=== PATIENT | female | born 1985 | race Caucasian/White ===

== ENCOUNTER 2018-07-24 18:25 | Inpatient (IN) | payer BC ==
[2018-07-24 20:11] LABS: ADD MAN DIFF? NO
[2018-07-24 20:14] LABS: WHITE BLOOD COUNT 12.8 10^3/ul (4.8-10.8)
[2018-07-24 20:14] LABS: BASOPHILS % 0.3 % (0.0-2.0); EOSINOPHILS # 0.1 10^3/ul (0.0-0.5); EOSINOPHILS % 0.8 % (0.0-7.0); HEMATOCRIT 38.2 % (37.0-47.0); HEMOGLOBIN 12.4 g/dl (12.0-16.0); LYMPHOCYTES # 2.4 10^3/ul (0.8-2.9); LYMPHOCYTES % 18.7 % (15.0-51.0); MEAN CORPUSCULAR HEMOGLOBIN 29.7 pg (29.0-33.0); MEAN CORPUSCULAR HGB CONC 32.5 g/dl (32.0-37.0); MEAN CORPUSCULAR VOLUME 91.4 fl (82.0-101.0); MEAN PLATELET VOLUME 10.8 fl (7.4-10.4); MONOCYTE # 1.1 10^3/ul (0.3-0.9); MONOCYTES % 8.4 % (0.0-11.0); NEUTROPHIL # 9.1 10^3/ul (1.6-7.5); NEUTROPHILS % 71.2 % (39.0-77.0); PLATELET COUNT 236 10^3/UL (140-415); RED BLOOD COUNT 4.18 10^6/ul (4.20-5.40)
[2018-07-24 20:16] LABS: INR 0.98; PROTIME 13.1 Sec (11.9-14.9)
[2018-07-24] MEDS: LACTATED RINGER'S 1,000 ML IV (20:17)
[2018-07-24] MEDS ORDERED: IBUPROFEN 600 MG TAB PO (20:30)
[2018-07-24] MEDS ORDERED: MISOPROSTOL 200 MCG TAB PR (20:30)
[2018-07-24] MEDS ORDERED: LIDOCAINE 1% (MPF) 30 ML INJ INJ (20:30)
[2018-07-24] MEDS ORDERED: BUTORPHANOL 2 MG INJ IV (20:30)
[2018-07-24] MEDS ORDERED: OXYTOCIN 30 UNITS/LR 500 ML IV ×2 (20:30)
[2018-07-24] MEDS ORDERED: MISOPROSTOL 50 MCG CAPSULE VAG (20:30)
[2018-07-24] MEDS ORDERED: CARBOPROST 250 MCG INJ IM (20:30)
[2018-07-24] MEDS ORDERED: METHYLERGONOVINE 0.2 MG INJ IM (20:30)
[2018-07-24] MEDS: MISOPROSTOL 50 MCG CAPSULE PO (20:55)
[2018-07-24 21:05] LABS: PARTIAL THROMBOPLASTIN TIME 27.2 Sec (23.0-35.0)
[2018-07-24 21:49] LABS: HEPATITIS B SURFACE ANTIGEN NEGATIVE (NEGATIVE)
[2018-07-25] MEDS: MISOPROSTOL 50 MCG CAPSULE PO ×5 (02:03→21:16)
[2018-07-25] MEDS: LACTATED RINGER'S 1,000 ML IV ×3 (04:05→20:08)
[2018-07-25 15:14] LABS: RAPID PLASMA REAGIN NONREACTIVE (NR)
[2018-07-26] MEDS: OXYTOCIN 30 UNITS/LR 500 ML IV ×2 (02:07→02:10)
[2018-07-26] MEDS: LACTATED RINGER'S 1,000 ML IV (03:36)
[2018-07-26] MEDS: BUTORPHANOL 2 MG INJ IV (04:40)
[2018-07-26] MEDS ORDERED: FENTAnyl 2MCG/ML-ROPIV 0.2% 100 ML (07:55)
[2018-07-26] MEDS ORDERED: NALOXONE (0.4 MG/ML) INJ IV (08:30)
[2018-07-26] MEDS: FENTAnyl 2MCG/ML-ROPIV 0.2% 100 ML BAG EPI (14:28)
[2018-07-26] MEDS: GENTAMICIN 120 MG/NS (PMX) 100 ML IVPB (18:28)
[2018-07-26 19:00] LABS: ADD MAN DIFF? NO
[2018-07-26 19:02] LABS: BASOPHILS % 0.2 % (0.0-2.0); HEMATOCRIT 39.8 % (37.0-47.0); HEMOGLOBIN 12.9 g/dl (12.0-16.0); LYMPHOCYTES # 0.9 10^3/ul (0.8-2.9); LYMPHOCYTES % 4.9 % (15.0-51.0); MEAN CORPUSCULAR HEMOGLOBIN 29.6 pg (29.0-33.0); MEAN CORPUSCULAR HGB CONC 32.4 g/dl (32.0-37.0); MEAN CORPUSCULAR VOLUME 91.3 fl (82.0-101.0); MEAN PLATELET VOLUME 10.6 fl (7.4-10.4); MONOCYTE # 1.5 10^3/ul (0.3-0.9); MONOCYTES % 7.9 % (0.0-11.0); NEUTROPHIL # 16.4 10^3/ul (1.6-7.5); NEUTROPHILS % 86.4 % (39.0-77.0); PLATELET COUNT 208 10^3/UL (140-415); RED BLOOD COUNT 4.36 10^6/ul (4.20-5.40)
[2018-07-26] MEDS: CLINDAMYCIN 900 MG/D5W (PMX) 50 ML IVPB (19:24)
[2018-07-26] MEDS: LACTATED RINGER'S 1,000 ML IV* (22:20)
[2018-07-26] MEDS ORDERED: GENTAMICIN IV PER PHARMACY XX (22:30)
[2018-07-26] MEDS ORDERED: HYDROCODONE/APAP (5/325) TAB PO (22:30)
[2018-07-26] MEDS ORDERED: ACETAMINOPHEN 325 MG TAB PO (22:30)
[2018-07-26] MEDS ORDERED: METHYLERGONOVINE 0.2 MG INJ IM (22:30)
[2018-07-26] MEDS ORDERED: CARBOPROST 250 MCG INJ IM (22:30)
[2018-07-26] MEDS ORDERED: DIBUCAINE 1% 30 GM OINT TOP (22:30)
[2018-07-26] MEDS ORDERED: MISOPROSTOL 200 MCG TAB PR (22:30)
[2018-07-26] MEDS ORDERED: OXYTOCIN 30 UNITS/LR 500 ML IV (22:30)
[2018-07-26] MEDS: WITCH HAZEL/GLYCERIN PAD PR (23:52)
[2018-07-26] MEDS: BENZOCAINE 20% 56 ML SPRAY TOP (23:52)
[2018-07-26] MEDS: IBUPROFEN 600 MG TAB PO (23:52)
[2018-07-27] MEDS: GENTAMICIN 80 MG/NS (PMX) 50 ML IVPB ×3 (02:14→18:04)
[2018-07-27] MEDS: LACTATED RINGER'S 1,000 ML IV* ×3 (02:16→22:20)
[2018-07-27] MEDS: CLINDAMYCIN 900 MG/D5W (PMX) 50 ML IVPB ×3 (05:27→21:56)
[2018-07-27] MEDS: IBUPROFEN 600 MG TAB PO ×3 (05:28→18:00)
[2018-07-27 07:56] LABS: ADD MAN DIFF? NO
[2018-07-27 08:00] LABS: ABNORMAL IP MESSAGE 1; BASOPHIL # 0.1 10^3/ul (0.0-0.1); BASOPHILS % 0.3 % (0.0-2.0); EOSINOPHILS % 0.2 % (0.0-7.0); HEMATOCRIT 33.3 % (37.0-47.0); HEMOGLOBIN 10.8 g/dl (12.0-16.0); LYMPHOCYTES # 2.7 10^3/ul (0.8-2.9); LYMPHOCYTES % 12.4 % (15.0-51.0); MEAN CORPUSCULAR HEMOGLOBIN 29.8 pg (29.0-33.0); MEAN CORPUSCULAR HGB CONC 32.4 g/dl (32.0-37.0); MEAN PLATELET VOLUME 10.9 fl (7.4-10.4); MONOCYTES % 9.2 % (0.0-11.0); NEUTROPHILS % 77.4 % (39.0-77.0); PLATELET COUNT 176 10^3/UL (140-415); RED BLOOD COUNT 3.62 10^6/ul (4.20-5.40); RED CELL DISTRIBUTION WIDTH 14.1 % (11.5-14.5)
[2018-07-27 08:41] LABS: POSITIVE DIFF @See below
[2018-07-27] MEDS: SENNA/DOCUSATE NA (8.6MG/50MG) TAB PO ×2 (09:56→21:10)
[2018-07-27 17:28] LABS: BLOOD UREA NITROGEN 13 mg/dl (7-20)
[2018-07-27 17:28] LABS: CREATININE 0.63 mg/dl (0.44-1.00)
[2018-07-27 17:32] LABS: GENTAMICIN,TROUGH 1.7 ug/ml (1.0-2.0)
[2018-07-28] MEDS: IBUPROFEN 600 MG TAB PO ×4 (00:34→18:00)
[2018-07-28] MEDS: GENTAMICIN 80 MG/NS (PMX) 50 ML IVPB ×2 (02:16→10:14)
[2018-07-28] MEDS: CLINDAMYCIN 900 MG/D5W (PMX) 50 ML IVPB (05:39)
[2018-07-28] MEDS: LACTATED RINGER'S 1,000 ML IV* (06:20)
[2018-07-28 08:03] LABS: ADD MAN DIFF? NO
[2018-07-28 08:07] LABS: BASOPHIL # 0.1 10^3/ul (0.0-0.1); BASOPHILS % 0.4 % (0.0-2.0); EOSINOPHILS # 0.1 10^3/ul (0.0-0.5); EOSINOPHILS % 0.9 % (0.0-7.0); HEMATOCRIT 33.3 % (37.0-47.0); HEMOGLOBIN 10.7 g/dl (12.0-16.0); LYMPHOCYTES # 2.8 10^3/ul (0.8-2.9); MEAN CORPUSCULAR HEMOGLOBIN 29.8 pg (29.0-33.0); MEAN CORPUSCULAR HGB CONC 32.1 g/dl (32.0-37.0); MEAN CORPUSCULAR VOLUME 92.8 fl (82.0-101.0); MEAN PLATELET VOLUME 11.2 fl (7.4-10.4); MONOCYTE # 1.3 10^3/ul (0.3-0.9); MONOCYTES % 8.2 % (0.0-11.0); NEUTROPHIL # 11.1 10^3/ul (1.6-7.5); NEUTROPHILS % 71.8 % (39.0-77.0); PLATELET COUNT 199 10^3/UL (140-415); RED BLOOD COUNT 3.59 10^6/ul (4.20-5.40); RED CELL DISTRIBUTION WIDTH 14.2 % (11.5-14.5)
[2018-07-28 08:07] LABS: WHITE BLOOD COUNT 15.5 10^3/ul (4.8-10.8)
[2018-07-28] MEDS: SENNA/DOCUSATE NA (8.6MG/50MG) TAB PO (09:16)
[2018-07-28] MEDS ORDERED: FERROUS SULFATE (EC) 325 MG TAB PO (12:30)
[2018-07-28] MEDS: DIPHTH/TET/ACEL PERTUSS (ADULT) 0.5 ML VIAL IM* (17:15)
[2018-07-28] MEDS ORDERED: DOCUSATE SODIUM 100 MG CAP PO (21:00)
== END 2018-07-28 18:25 | disposition home or self-care (01) | DRG 805 ==
LOC: L-D 07-25 05:55 → PP1 07-26 21:55 → L-D 18:25
PROVIDERS: Obstetrics & Gynecology
PROC: 10E0XZZ Delivery of Products of Conception, External Approach (ICD-10-PCS; principal; 2018-07-26)
PROC: 0KQM0ZZ Repair Perineum Muscle, Open Approach (ICD-10-PCS; 2018-07-26)
DX: O48.0 Post-term pregnancy (principal); O70.0 First degree perineal laceration during delivery; O41.1230 Chorioamnionitis, third trimester, not applicable or unspecified; Z37.0 Single live birth; Z3A.40 40 weeks gestation of pregnancy
CPT/HCPCS: 62322; 76815; 80170; 82565; 84520; 85025; 85610; 85730; 86592; 86850; 86900; 86901; 87070; 87086; 87340; 88307; 99464